=== PATIENT | female | born 1990 | race American Indian/Alaskan Native ===

== ENCOUNTER 2017-12-06 09:29 | Emergency (ER) | payer MEDICAID, OTHER ==
[2017-12-06 09:47] VITALS: TEMP 98.1
[2017-12-06 09:53] VITALS: BMI 28.1
--- NOTE | 2017-12-06 10:14 | ED PDOC ---
Arrival/HPI - General Chief Complaint: Female Genitourinary Time Seen by Provider: 12/06/17 09:36 Historian: Patient - History of Present Illness Narrative History of Present Illness (Text): 12/06/17 10:10 27yo female with PMHx of Asthma who present with painful lesion to her vagina x 3days. States pain started on that area, after shaving. States she noticed redness and itching to the area this morning. She came to the ED because she is worried of having herpes. She denies previous history. Denies any other complaint. Past Medical History - Provider Review Nursing Documentation Reviewed: Yes - Tetanus Immunization Tetanus Immunization: Unknown - Reproductive Menopause: No - Past Medical History Past Medical History: No Previous - Cardiac Hx Cardiac Disorders: No - Pulmonary Hx Respiratory Disorders: Yes Hx Asthma: Yes - Neurological Hx Neurological Disorder: Yes Hx Headaches: Yes - HEENT Hx HEENT Disorder: No - Renal Hx Renal Disorder: No - Endocrine/Metabolic Hx Endocrine Disorders: No - Hematological/Oncological Hx Blood Disorders: No - Integumentary Hx Dermatological Disorder: No - Musculoskeletal/Rheumatological Hx Musculoskeletal Disorders: No - Gastrointestinal Hx Gastrointestinal Disorders: No - Genitourinary/Gynecological Hx Genitourinary Disorders: Yes Hx Urinary Tract Infection: Yes - Psychiatric Hx Psychophysiologic Disorder: No Hx Depression: No Hx Emotional Abuse: No Hx Physical Abuse: No Hx Substance Use: No - Past Surgical History Past Surgical History: No Previous - Surgical History Other/Comment: left breast biopsy - Anesthesia Hx Anesthesia: Yes Hx Anesthesia Reactions: No Hx Malignant Hyperthermia: No - Suicidal Assessment Feels Threatened In Home Enviroment: No Family/Social History - Physician Review Nursing Documentation Reviewed: Yes Family/Social History: Unknown Family HX Smoking Status: Never Smoked Hx Alcohol Use: Yes Frequency of alcohol use: Socially Hx Substance Use: No Allergies/Home Meds Allergies/Adverse Reactions: Allergies No Known Allergies Allergy (Verified 07/25/13 12:56) Home Medications: Home Meds Medication Instructions Recorded Confirmed Control 1 tab PO DAILY 07/25/13 07/25/13 Review of Systems - Physician Review All systems were reviewed & negative as marked: Yes - Review of Systems Constitutional: Normal Eyes: Normal ENT: Normal Respiratory: Normal Cardiovascular: Normal Gastrointestinal: Normal Genitourinary Female: Other (Vaginal leison) Musculoskeletal: Normal Skin: Normal Neurological: Normal Endocrine: Normal Hemo/Lymphatic: Normal Psychiatric: Normal Physical Exam Vital Signs Reviewed: Yes Vital Signs Temp Pulse Resp BP Pulse Ox 12/06/17 09:45 98.1 F 60 16 150/81 98 Temperature: Afebrile Blood Pressure: Normal Pulse: Regular Respiratory Rate: Normal Appearance: Positive for: Well-Appearing, Non-Toxic, Comfortable Pain Distress: None Mental Status: Positive for: Alert and Oriented X 3 - Systems Exam Head: Present: Atraumatic, Normocephalic Pupils: Present: PERRL Extroacular Muscles: Present: EOMI Conjunctiva: Present: Normal Mouth: Present: Moist Mucous Membranes Neck: Present: Normal Range of Motion Respiratory/Chest: Present: Clear to Auscultation, Good Air Exchange. No: Respiratory Distress, Accessory Muscle Use Cardiovascular: Present: Regular Rate and Rhythm, Normal S1, S2. No: Murmurs Abdomen: Present: Normal Bowel Sounds. No: Tenderness, Distention, Peritoneal Signs Genitourinary/Pelvic Exam: Present: Vaginal Lesions (Approximately 0.8cm annular shaped shallow lesion noted on left external labia) Back: Present: Normal Inspection Upper Extremity: Present: Normal Inspection. No: Cyanosis, Edema Lower Extremity: Present: Normal Inspection. No: Edema Neurological: Present: GCS=15, CN II-XII Intact, Speech Normal Skin: Present: Warm, Dry, Normal Color. No: Rashes Psychiatric: Present: Alert, Oriented x 3, Normal Insight, Normal Concentration Medical Decision Making ED Course and Treatment: 12/06/17 10:12 No sign of infection. Lesion suspicious for abrasion form shaving Vs. Herpes. Pt placed on prophylactic abx secondary to her subjective complaint of redness of lesion. Herpes culture ordered and pending. Pt advised to f/u with the MR in for result. - Medication Orders Current Medication Orders: Discontinued Medications Cephalexin Monohydrate (Keflex) 500 mg PO STAT STA PRN Reason: Protocol Stop: 12/06/17 09:53 Disposition/Present on Arrival - Present on Arrival Any Indicators Present on Arrival: No History of DVT/PE: No History of Uncontrolled Diabetes: No Urinary Catheter: No History of Decub. Ulcer: No History Surgical Site Infection Following: None - Disposition Have Diagnosis and Disposition been Completed?: Yes Diagnosis: Vaginal lesion Disposition: HOME/ ROUTINE Disposition Time: 10:15 Patient Plan: Discharge Condition: STABLE Discharge Instructions (ExitCare): Vaginal Discharge in Adults Additional Instructions: Follow up with your doctor Return to ED for any new symptoms Prescriptions: Cephalexin [Keflex] 500 mg PO TID #21 capsule Referrals: Augusto Valentin MD [Staff Provider] - Follow up with primary
[2017-12-06 10:43] VITALS: BP 140/78; PULSE 62; RESP 17; O2SAT 99
== END 2017-12-06 10:43 | disposition home or self-care (01) ==
LOC: ED 09:29
DX: N89.8 Other specified noninflammatory disorders of vagina (principal)

== ENCOUNTER 2018-08-29 10:45 | Emergency (ER) | payer OTHER ==
[2018-08-29 11:26] VITALS: BP 90/52; PULSE 72; RESP 16; TEMP 98.1; O2SAT 96; BMI 30.1
--- NOTE | 2018-08-29 12:09 | ED PDOC ---
Arrival/HPI <Cecilia Decker - Last Filed: 08/29/18 12:59> - General Historian: Patient - History of Present Illness Narrative History of Present Illness (Text): 08/29/18 12:07 Patient is a 28 year old female with no significant past medical history who presents to the emergency department for bilateral hand pain that started a few weeks ago. Patient states that the pain has been intermittent for the past few weeks but has been progressively getting worse. This morning she states that the pain was severe and was associated with numbness/tingling of both fingertips. Pain is located in her palms and occasionally radiates up the arm. She describes the pain as pressure like. Patient states that she has not tried taking anything for the pain. Currently rates the pain a 9/10 on pain scale. Denies any trauma. Allergies: NKDA Medications: Vitamins Medical History: Denies Surgical History: Left breast biopsy Social History: Denies tobacco/drug use, drinks wine occasionally Family History: Cancer, DM, Hypertension Time/Duration: > week Symptom Course: Worsening Quality: Pressure Severity Level: 9 <Ana Woo - Last Filed: 08/29/18 17:24> - General Chief Complaint: Finger,Hand,&Wrist Time Seen by Provider: 08/29/18 12:00 Past Medical History - Provider Review Nursing Documentation Reviewed: Yes - Tetanus Immunization Tetanus Immunization: Unknown - Past Medical History Past Medical History: No Previous - Cardiac Hx Cardiac Disorders: No - Pulmonary Hx Respiratory Disorders: Yes Hx Asthma: Yes - Neurological Hx Neurological Disorder: Yes Hx Headaches: Yes - HEENT Hx HEENT Disorder: No - Renal Hx Renal Disorder: No - Endocrine/Metabolic Hx Endocrine Disorders: No - Hematological/Oncological Hx Blood Disorders: No - Integumentary Hx Dermatological Disorder: No - Musculoskeletal/Rheumatological Hx Musculoskeletal Disorders: No - Gastrointestinal Hx Gastrointestinal Disorders: No - Genitourinary/Gynecological Hx Genitourinary Disorders: Yes Hx Urinary Tract Infection: Yes - Psychiatric Hx Psychophysiologic Disorder: No Hx Depression: No Hx Emotional Abuse: No Hx Physical Abuse: No Hx Substance Use: No - Past Surgical History Past Surgical History: No Previous - Surgical History Other/Comment: left breast biopsy - Anesthesia Hx Anesthesia: Yes Hx Anesthesia Reactions: No Hx Malignant Hyperthermia: No - Suicidal Assessment Feels Threatened In Home Enviroment: No <Ana Woo - Last Filed: 08/29/18 17:24> Family/Social History - Physician Review Nursing Documentation Reviewed: Yes Family/Social History: Diabetes, Neoplasm/Cancer Smoking Status: Never Smoked Hx Alcohol Use: Yes Hx Substance Use: No <Ana Woo - Last Filed: 08/29/18 17:24> Allergies/Home Meds <Cecilia Decker - Last Filed: 08/29/18 12:59> <Ana Woo - Last Filed: 08/29/18 17:24> Allergies/Adverse Reactions: Allergies No Known Allergies Allergy (Verified 08/29/18 11:38) Review of Systems - Physician Review All systems were reviewed & negative as marked: Yes - Review of Systems Constitutional: Normal. absent: Fatigue, Fevers Eyes: Normal ENT: Normal Respiratory: Normal. absent: SOB, Cough Cardiovascular: Normal. absent: Chest Pain, Palpitations Gastrointestinal: Normal. absent: Abdominal Pain Musculoskeletal: Other (bilateral hand pain ). absent: Back Pain, Joint Swelling Skin: absent: Rash Neurological: absent: Headache, Dizziness <Ana Woo - Last Filed: 08/29/18 17:24> Physical Exam Vital Signs Temp Pulse Resp BP Pulse Ox 08/29/18 11:24 98.1 F 72 16 90/52 L 96 <Cecilia Decker - Last Filed: 08/29/18 12:59> Vital Signs Reviewed: Yes Vital Signs Temp Pulse Resp BP Pulse Ox 08/29/18 11:24 98.1 F 72 16 90/52 L 96 Temperature: Afebrile Blood Pressure: Hypotensive Pulse: Regular Respiratory Rate: Normal Appearance: Positive for: Well-Appearing, Non-Toxic, Comfortable Pain Distress: Mild Mental Status: Positive for: Alert and Oriented X 3 - Systems Exam Head: Present: Atraumatic, Normocephalic Pupils: Present: PERRL Extroacular Muscles: Present: EOMI Mouth: Present: Moist Mucous Membranes Neck: Present: Normal Range of Motion, Other (negative spurlings test) Respiratory/Chest: Present: Clear to Auscultation, Good Air Exchange Cardiovascular: Present: Regular Rate and Rhythm, Normal S1, S2 Upper Extremity: Present: Normal ROM, NORMAL PULSES, Neurovascularly Intact, Other (+phalens test, negative tinel's test, negative finklestein test; 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 No: Edema, Tenderness, Swelling Lower Extremity: Present: Normal Inspection Skin: Present: Warm, Dry, Normal Color Psychiatric: Present: Alert, Oriented x 3 <Ana Woo - Last Filed: 08/29/18 17:24> Medical Decision Making ED Course and Treatment: 08/29/18 12:10 28 year old female presents to the Emergency department for bilateral hand dis comfort. In agreement with resident note which contains more details about the patient. Patient seen and evaluated with resident. Came up with plan and treatment together. - Medication Orders Current Medication Orders: Discontinued Medications Ibuprofen (Motrin Tab) 600 mg PO STAT STA Stop: 08/29/18 12:07 Last Admin: 08/29/18 12:33 Dose: 600 mg MAR Pain/Vitals Document 08/29/18 12:33 LA (Rec: 08/29/18 12:35 LA [id number]) Pain Reassessment Is This A Pain ReAssessment? No Sleep Is patient sleeping during reassessment? No Presence of Pain Presence of Pain Yes Pain Scale Used Protocol: PSCALES Pain Scale Used Numeric Location Left, Right or Bilateral Bilateral Pain Location Body Site Hand Description Intermittent Intensity 7 Scale Used Numeric <Cecilia Decker - Last Filed: 08/29/18 12:59> ED Course and Treatment: 08/29/18 12:10 Patient seen and examined at bedside. Patient with bilateral hand pain with associated numbness and tingling. On exam, Phalens test is positive. Will order Motrin 600mg PO x 1. Patient instructed to take Motrin 600mg Q6H prn and to wear wrist brace at night. Instructed to also follow up with PMD outpatient. <Ana Woo - Last Filed: 08/29/18 17:24> - PA / [employer] / Resident Statement MD/ has reviewed & agrees with the documentation as recorded. MD/DO has examined the patient and agrees with the treatment plan. - Scribe Statement The provider has reviewed the documentation as recorded by the Miahibe Jody Conway. All medical record entries made by the Scribe were at my direction and personally dictated by me. I have reviewed the chart and agree that the record accurately reflects my personal performance of the history, physical exam, me dical decision making, and the department course for this patient. I have also personally directed, reviewed, and agree with the discharge instructions and disposition. <Cecilia Decker - Last Filed: 08/29/18 12:59> Disposition/Present on Arrival <Cecilia Decker - Last Filed: 08/29/18 12:59> - Present on Arrival Any Indicators Present on Arrival: No History of DVT/PE: No History of Uncontrolled Diabetes: No Urinary Catheter: No History of Decub. Ulcer: No History Surgical Site Infection Following: None - Disposition Have Diagnosis and Disposition been Completed?: Yes Disposition Time: 12:27 Patient Plan: Discharge <Ana Woo - Last Filed: 08/29/18 17:24> - Disposition Diagnosis: Carpal tunnel syndrome on both sides Disposition: HOME/ ROUTINE Condition: GOOD Discharge Instructions (ExitCare): Carpal Tunnel Syndrome Additional Instructions: - Please take Motrin 600mg Q6H prn for pain with food or milk - Recommend wearing wrist brace - Please follow up with primary care doctor within 2-3 days - If symptoms worsen, return to Emergency department Prescriptions: Ibuprofen [Motrin] 600 mg PO Q6H PRN #20 tab PRN Reason: Pain, Moderate (4-7) Referrals: [facility] [Provider Group] - Follow up with primary Forms: [facility] (Portuguese), SCHOOL NOTE
== END 2018-08-29 12:40 | disposition home or self-care (01) ==
LOC: ED 10:45
DX: G56.03 Carpal tunnel syndrome, bilateral upper limbs (principal)

== ENCOUNTER 2018-08-30 11:22 | Emergency (ER) | payer OTHER ==
[2018-08-30 11:35] VITALS: BMI 29.6
[2018-08-30 11:39] VITALS: TEMP 98.5; O2SAT 100
--- NOTE | 2018-08-30 12:22 | ED PDOC ---
Arrival/HPI - General Chief Complaint: Upper Extremity Problem/Injury Time Seen by Provider: 08/30/18 11:35 Historian: Patient - History of Present Illness Narrative History of Present Illness (Text): 08/30/18 12:18 28yr old female who is left hand dominant presents today with worsening RIGHT wrist pain and intermittent paresthesias worsening since june. pt states she was seen in ER yesterday and given wrist splint and advised to f/u with PMD. pt states that when she woke up today the pain in the left hand resolved but she is having worsening pain in the right neck. pt states she has pain in the right side of the neck that radiates into the right arm. pt denies fever/chills. no trauma or injury. 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 pt denies headaches, dizziness, weakness. Past Medical History - Provider Review Nursing Documentation Reviewed: Yes - Travel History Have you recently traveled outside [place] w/in the past 3 mons?: No - Infectious Disease Hx of Infectious Diseases: None - Tetanus Immunization Tetanus Immunization: Unknown - Past Medical History Past Medical History: No Previous - Cardiac Hx Cardiac Disorders: No - Pulmonary Hx Respiratory Disorders: Yes Hx Asthma: Yes - Neurological Hx Neurological Disorder: Yes Hx Headaches: Yes - HEENT Hx HEENT Disorder: No - Renal Hx Renal Disorder: No - Endocrine/Metabolic Hx Endocrine Disorders: No - Hematological/Oncological Hx Blood Disorders: No - Integumentary Hx Dermatological Disorder: No - Musculoskeletal/Rheumatological Hx Musculoskeletal Disorders: No - Gastrointestinal Hx Gastrointestinal Disorders: No - Genitourinary/Gynecological Hx Genitourinary Disorders: Yes Hx Urinary Tract Infection: Yes - Psychiatric Hx Psychophysiologic Disorder: No Hx Depression: No Hx Emotional Abuse: No Hx Physical Abuse: No Hx Substance Use: No - Past Surgical History Past Surgical History: No Previous - Surgical History Other/Comment: left breast biopsy - Anesthesia Hx Anesthesia: Yes Hx Anesthesia Reactions: No Hx Malignant Hyperthermia: No - Suicidal Assessment Feels Threatened In Home Enviroment: No Family/Social History - Physician Review Nursing Documentation Reviewed: Yes Family/Social History: Unknown Family HX Smoking Status: Never Smoked Hx Alcohol Use: Yes Hx Substance Use: No Allergies/Home Meds Allergies/Adverse Reactions: Allergies No Known Allergies Allergy (Verified 08/29/18 11:38) Review of Systems - Review of Systems Constitutional: absent: Fatigue, Fevers Respiratory: absent: SOB, Cough Cardiovascular: absent: Chest Pain, Palpitations Gastrointestinal: absent: Abdominal Pain, Nausea, Vomiting Musculoskeletal: Arthralgias (right wrist pain), Neck Pain. absent: Back Pain Skin: absent: Rash, Pruritis Neurological: absent: Headache, Dizziness Psychiatric: absent: Anxiety, Depression Physical Exam Vital Signs Reviewed: Yes Vital Signs Temp Pulse Resp BP Pulse Ox 08/30/18 11:38 98.5 F 65 16 101/66 100 Temperature: Afebrile Blood Pressure: Normal Pulse: Regular Respiratory Rate: Normal Appearance: Positive for: Well-Appearing, Non-Toxic, Comfortable Pain Distress: None Mental Status: Positive for: Alert and Oriented X 3 - Systems Exam Head: Present: Atraumatic Mouth: Present: Moist Mucous Membranes Neck: Present: Normal Range of Motion, Paraspinal Tenderness (+ right sided paraspinal tenderness and trapezius tenderness). No: MIDLINE TENDERNESS Respiratory/Chest: Present: Clear to Auscultation, Good Air Exchange. No: Respiratory Distress, Accessory Muscle Use Cardiovascular: Present: Regular Rate and Rhythm Upper Extremity: Present: Normal Inspection, Normal ROM, NORMAL PULSES, Neurovascularly Intact, Capillary Refill < 2s, Other (+ phalen test). No: Tenderness, Swelling, Erythema, Temperature Abnormalties Neurological: Present: GCS=15, Speech Normal Skin: Present: Warm, Dry, Normal Color. No: Rashes Psychiatric: Present: Alert, Oriented x 3 Medical Decision Making ED Course and Treatment: 08/30/18 13:31 Patient nontoxic well-appearing in no distress with stable vital signs X-rays of the right wrist; no fractures xray of the c-spine; no fracture toradol IM I discussed all results with patient. i advised to followup with the orthopedist within the next 2 days. Return if symptoms worsen persist or new symptoms develop Patient verbalizes understanding of discharge instructions and need for immediate followup. all aspects of this case were discussed the attending of record. Impression: Wrist pain, neck pain Motrin every 6 hours as needed for pain Flexeril one tablet every 8 hours as needed for muscle spasms: May cause drowsiness Use wrist splint Followup with the orthopedist within the next 2 days Followup with primary care physician within the next 2 days Return if symptoms worsen persist or if new symptoms develop - RAD Interpretation Radiology Orders: 08/30/18 12:16 WRIST, RIGHT 3 VIEWS [RAD] Stat Disposition/Present on Arrival - Present on Arrival Any Indicators Present on Arrival: No History of DVT/PE: No History of Uncontrolled Diabetes: No Urinary Catheter: No History of Decub. Ulcer: No History Surgical Site Infection Following: None - Disposition Have Diagnosis and Disposition been Completed?: Yes Diagnosis: Wrist pain, Neck pain Disposition: HOME/ ROUTINE Disposition Time: 12:23 Patient Plan: Discharge Condition: GOOD Discharge Instructions (ExitCare): Generalized Neck Pain (DC), Carpal Tunnel Exercises Additional Instructions: Motrin every 6 hours as needed for pain Flexeril one tablet every 8 hours as needed for muscle spasms: May cause drowsiness Use wrist splint Followup with the orthopedist within the next 2 days Followup with primary care physician within the next 2 days Return if symptoms worsen persist or if new symptoms develop Prescriptions: Cyclobenzaprine [Cyclobenzaprine HCl] 10 mg PO Q8 #10 tab Referrals: Jamilah Perea MD [Primary Care Provider] - Follow up with primary Edward Ivey MD [Staff Provider] - Follow up with primary Doretha Courtney MD [Staff Provider] - Follow up with primary [facility] [Outside] - Follow up with primary [facility] [Outside] - Follow up with primary Forms: [facility] (Croatian), WORK NOTE, SCHOOL NOTE
[2018-08-30 13:14] VITALS: BP 103/65; PULSE 64; RESP 18
--- NOTE | 2018-08-30 13:44 | RAD ---
Date of service: 08/30/2018 PROCEDURE: Right Wrist Radiographs. HISTORY: wrist injury COMPARISON: None. FINDINGS: BONES: Normal. No fracture. JOINTS: Normal. No dislocation. SOFT TISSUES: Normal. OTHER FINDINGS: None. IMPRESSION: Normal right wrist radiographs.
--- NOTE | 2018-08-30 13:46 | RAD ---
Date of service: 08/30/2018 PROCEDURE: Cervical Spine Radiographs. HISTORY: Pain. COMPARISON: None available. FINDINGS: BONES: Alignment maintained. No fracture. Dens Intact. Reversal of the normal lordotic curvature DISC SPACES: Normal. SOFT TISSUES: Normal. No prevertebral soft tissue swelling. OTHER FINDINGS: None. IMPRESSION: No acute findings
== END 2018-08-30 13:48 | disposition home or self-care (01) ==
LOC: ED 11:22
DX: M25.531 Pain in right wrist (principal); M54.2 Cervicalgia
CPT/HCPCS: 72050; 73110; 96372; 99283; J1885